=== PATIENT | female | born 1960 | race Caucasian/White ===

== ENCOUNTER 2017-09-01 06:15 | Day surgery (SDC) | payer BC ==
[~2017-09-01] VITALS: Ht 152.4 cm; Wt 51.3 kg
[2017-09-01] MEDS ORDERED: CEFAZOLIN 1 GM IVPB PREMIX 50 ML IV ONE ×2 (06:56→14:00)
[2017-09-01] MEDS ORDERED: CEFAZOLIN SOD 1 GM/ ISO 50 ML PREMIX IV ONE (07:15)
[2017-09-01] MEDS ORDERED: fentaNYL CITRATE/PF 100 MCG/2 ML AMP IVP PRN (08:45)
[2017-09-01] MEDS ORDERED: ONDANSETRON HCL 4 MG/2 ML VIAL IVP PRN ×2 (08:45→11:15)
[2017-09-01] MEDS ORDERED: HYDROmorphone 1 MG INJ. 1 MG/ML AMPUL IVP PRN (08:45)
[2017-09-01] MEDS ORDERED: SEVOFLURANE 15 MIN GAS INH ONE (11:00)
[2017-09-01] MEDS ORDERED: DEXTROSE 50% JECT 50 ML DISP.SYRIN IVP ONE (11:00)
[2017-09-01] MEDS ORDERED: BUPIVACAINE /PF 0.5% 30 ML VIAL INJ ONE (11:00)
[2017-09-01] MEDS ORDERED: PROPOFOL 200MG/ 20ML VIAL (DIPRIVAN) IV ONE (11:00)
[2017-09-01] MEDS ORDERED: NS IRRIG SOLN 1000 ML IR ONE (11:00)
[2017-09-01] MEDS ORDERED: GLYCOPYRROLATE 0.2 MG/ML VIAL IJ ONE (11:00)
[2017-09-01] MEDS ORDERED: DEXAMETHASONE SOD PHOSPHATE 4 MG/ML VIAL IVP ONE (11:00)
[2017-09-01] MEDS ORDERED: MIDAZOLAM HCL 5 MG/ML VIAL (VERSED) IV ONE (11:00)
[2017-09-01] MEDS ORDERED: ROCURONIUM BROMIDE 10 MG/ML (ZEMURON) IV ONE (11:00)
[2017-09-01] MEDS ORDERED: ONDANSETRON HCL 4 MG/2 ML VIAL IVP ONE (11:00)
[2017-09-01] MEDS ORDERED: LR 1,000 ML IV.SOLN IV ONE (11:00)
[2017-09-01] MEDS ORDERED: NS 1000 ML BAG IV ONE (11:00)
[2017-09-01] MEDS ORDERED: fentaNYL CITRATE 250 MCG/5 ML AMP IV ONE (11:00)
[2017-09-01] MEDS ORDERED: NEOSTIGMINE METHYLSULFATE 1 MG/ML, 10 ML VIAL IVP ONE (11:00)
[2017-09-01] MEDS ORDERED: OXYCODONE/ACETAMINOPHEN 5-325 TABLET PO PRN (11:15)
[2017-09-01] MEDS ORDERED: HYDROcodone/ACETAMIN 5-325 MG TAB (NORCO/ VICODIN) PO PRN (11:15)
[2017-09-01] MEDS ORDERED: fentaNYL CITRATE/PF 100 MCG/2 ML AMP ONE ×3 (11:29→13:00)
[2017-09-01] MEDS: fentaNYL CITRATE/PF 100 MCG/2 ML AMP IVP PRN ×2 (11:30→12:00)
[2017-09-01] MEDS ORDERED: OXYCODONE/ACETAMINOPHEN 5-325 TABLET ONE (12:34)
[2017-09-01] MEDS ORDERED: KETOROLAC TROMETHAMINE 30 MG VIAL ONE (13:22)
[2017-09-01] MEDS ORDERED: KETOROLAC TROMETHAMINE 30 MG VIAL IVP ONE (13:30)
[2017-09-01 13:49] VITALS: BP_SYST 128
== END 2017-09-01 15:55 | disposition home or self-care (01) ==
LOC: SMU 06:15 → SDS 06:15
PROVIDERS: ATTEND Specialist
DX: D25.9 Leiomyoma of uterus, unspecified (principal); Z90.49 Acquired absence of other specified parts of digestive tract; I10 Essential (primary) hypertension; E78.00 Pure hypercholesterolemia, unspecified
CPT/HCPCS: 58573; 88307; C1727; J0690; J1100; J1885; J2250; J2405; J2704; J2710; J3010; J3490 ×2; J7030; J7120; E0190